=== PATIENT | male | born 1990 | race Caucasian/White ===

== ENCOUNTER 2019-07-26 02:35 | Emergency (ER) | payer SELFPAY ==
[~2019-07-26] VITALS: Ht 180.3 cm; Wt 86.6 kg
[2019-07-26 02:39] VITALS: Ht 180.3 cm; Wt 86.6 kg
[2019-07-26 05:11] VITALS: BP 149/80
== END 2019-07-26 05:11 | disposition home or self-care (01) ==
LOC: ED 02:35
DX: J40 Bronchitis, not specified as acute or chronic (principal); J06.9 Acute upper respiratory infection, unspecified
CPT/HCPCS: 87804; Q0092